=== PATIENT | female | born 2000 | race Caucasian/White ===

== ENCOUNTER 2024-10-18 20:24 | Emergency (ER) | payer SELFPAY ==
[2024-10-18 20:30] VITALS: BP 132/83
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
[2024-10-18 23:42] VITALS: BP 128/79
== END 2024-10-18 23:43 | disposition home or self-care (01) ==
LOC: EMR 20:24
PROVIDERS: EMERGENCY PHYSICIAN Emergency Medicine; FAMILY PHYSICIAN Nurse Practitioner Adult Health
DX: S16.1XXA Strain of muscle, fascia and tendon at neck level, initial encounter (principal); S29.011A Strain of muscle and tendon of front wall of thorax, initial encounter; V43.51XA Car driver injured in collision with sport utility vehicle in traffic accident, initial encounter
CPT/HCPCS: 99284; 70160; 71046; 93005